=== PATIENT | female | born 1975 | race Two or more races ===

== ENCOUNTER 2020-03-24 16:44 | Outpatient (CLI) | payer OTHER | END 2020-03-24 17:25 | disposition home or self-care (01) | LOC: OFIC 805 16:44 | PROVIDERS: ATTEND Otolaryngology | DX: J30.89 Other allergic rhinitis (principal); H61.23 Impacted cerumen, bilateral; R09.81 Nasal congestion ==

== ENCOUNTER 2020-05-05 07:54 | Outpatient (CLI) | payer OTHER | END 2020-05-05 16:23 | disposition home or self-care (01) | LOC: OFIC 805 07:54 | PROVIDERS: ATTEND Otolaryngology | DX: J30.89 Other allergic rhinitis (principal); R09.81 Nasal congestion; R42 Dizziness and giddiness ==

== ENCOUNTER 2020-11-26 14:46 | Outpatient (CLI) | payer OTHER | END 2020-11-26 16:19 | disposition home or self-care (01) | LOC: OFIC 805 14:46 | PROVIDERS: ATTEND Otolaryngology | DX: J30.89 Other allergic rhinitis (principal); R09.81 Nasal congestion ==